=== PATIENT | male | born 1985 | race Caucasian/White ===

== ENCOUNTER 2017-08-05 18:37 | Emergency (ER) | payer SELFPAY ==
[2017-08-05 19:33] VITALS: BP 123/69; PULSE 58; TEMP 98.7; BMI 31.7
--- NOTE | 2017-08-05 20:01 | PDOC ---
History of Present Illness - General Chief Complaint: Eye Problem Stated Complaint: EYE PAIN Time Seen by Provider: 08/05/17 19:39 History Source: Patient Exam Limitations: No Limitations - History of Present Illness Initial Comments: 08/05/17 19:59 31-year-old male with complaints of left eye itchiness with discharge since yesterday now affecting his right eye. Patient denies visual changes, recent illness, injury to the eye, or radiation of pain. Timing/Duration: other Severity: mild Associated Symptoms: reports: denies symptoms Past History - Travel Traveled outside of the country in the last 30 days: No - Past Medical History Allergies/Adverse Reactions: Allergies Allergy/AdvReac Type Severity Reaction Status Date / Time No Known Allergies Allergy Verified 08/05/17 19:33 Home Medications: Ambulatory Orders NK [No Known Home Medication] 08/05/17 COPD: No - Suicide/Smoking/Psychosocial Hx Smoking Status: No Smoking History: Never smoked Have you smoked in the past 12 months: No Number of Cigarettes Smoked Daily: 0 Information on smoking cessation initiated: No Hx Alcohol Use: No Drug/Substance Use Hx: No Substance Use Type: None Patient Lives Alone: No Lives with/in: spouse/SO Review of Systems - Review of Systems Able to Perform ROS?: Yes Constitutional: No: Symptoms Reported HEENTM: Yes: Eye Pain, Blurred Vision, Tearing Integumentary: No: Symptoms Reported Neurological: No: Headache *Physical Exam - Vital Signs Last Vital Signs Temp Pulse Resp BP Pulse Ox 98.7 F 58 L 20 123/69 98 08/05/17 19:29 08/05/17 19:29 08/05/17 19:29 08/05/17 19:29 08/05/17 19:29 - Physical Exam General Appearance: Yes: Nourished, Appropriately Dressed. No: Apparent Distress HEENT: positive: EOMI, JERROD, Other (erythema to left sclera, conjuctiva, with scant amount of purulent drainge to lacrimal duct) Medical Decision Making - Medical Decision Making 08/05/17 20:02 Pt with left eye conjuctivitis. Pt will be treated with erythromycin oitment *DC/Admit/Observation/Transfer Diagnosis at time of Disposition: Conjunctivitis - Discharge Dispostion Disposition: HOME Condition at time of disposition: Good - Referrals - Patient Instructions Printed Discharge Instructions: DI for Conjunctivitis Additional Instructions: Please use oitment as prescribed until completed - Post Discharge Activity
== END 2017-08-05 20:09 | disposition home or self-care (01) ==
LOC: JERFT 18:37
DX: H10.33 Unspecified acute conjunctivitis, bilateral (principal)
CPT/HCPCS: 99281-25

== ENCOUNTER 2018-10-11 13:32 | Emergency (ER) | payer SELFPAY ==
[2018-10-11 13:56] VITALS: BP 123/68; PULSE 56; TEMP 99; BMI 30.4
--- NOTE | 2018-10-11 13:57 | PDOC ---
Rapid Medical Evaluation Time Seen by Provider: 10/11/18 13:52 Medical Evaluation: Allergies Allergy/AdvReac Type Severity Reaction Status Date / Time No Known Allergies Allergy Verified 08/05/17 19:33 10/11/18 13:52 Pt presents for evaluation of his abdomen. He states he feels a "ball" to his abdomen Exam: SNTND abdomen. Orders: Nothing Pt to proceed to ED for further evaluation Discharge Disposition - Diagnosis Abdomen soft and nontender - Referrals - Patient Instructions - Post Discharge Activity
--- NOTE | 2018-10-11 14:08 | PDOC ---
History of Present Illness - General Chief Complaint: Pain Stated Complaint: ABD PAIN Time Seen by Provider: 10/11/18 13:52 - History of Present Illness Initial Comments: 10/11/18 14:04 32-year-old male without comorbidities presents for evaluation of epigastric mass 7 days with mild discomfort. No systemic symptoms no nausea vomiting or bowel issues Past History - Past Medical History Allergies/Adverse Reactions: Allergies Allergy/AdvReac Type Severity Reaction Status Date / Time No Known Allergies Allergy Verified 10/11/18 13:56 Home Medications: Ambulatory Orders Pantoprazole Sodium [Protonix] 40 mg PO DAILY #30 tablet. 10/11/18 COPD: No - Suicide/Smoking/Psychosocial Hx Smoking Status: No Smoking History: Never smoked Have you smoked in the past 12 months: No Number of Cigarettes Smoked Daily: 0 Hx Alcohol Use: No Drug/Substance Use Hx: No Substance Use Type: None Review of Systems - Review of Systems Constitutional: No: Fever ABD/GI: No: Constipated, Diarrhea, Nausea, Vomiting, Indigestion *Physical Exam - Vital Signs Last Vital Signs Temp Pulse Resp BP Pulse Ox 99.0 F 56 L 18 123/68 98 10/11/18 13:51 10/11/18 13:51 10/11/18 13:51 10/11/18 13:51 10/11/18 13:51 - Physical Exam Comments: 10/11/18 14:04 HEAD: NC/AT EYES: Conjuntiva clear Ears: Canals and TM's normal NOSE: No d/c THROAT: Moist mucous membrances, oral pharanx clear, uvula midline NECK: Supple without adenopathy CARDIAC: S1 S2 LUNGS: CTA Full and Equal breath sounds ABDOMEN: Soft NT ND there is a fullness at the epigastric area without guarding or rebound. Mild tenderness. The remainder of the abdomen is benign. MS: Full ROM in all joints without edema NEUROLOGIC: No gross sensory or motor deficits, NVID SKIN: Normal color and temperature no lesions or rashes Medical Decision Making - Medical Decision Making 10/11/18 14:05 This appears to be an epigastric hernia we'll give abdominal corset and general surgery follow-up. I will also place the patient on a proton pump inhibitor. *DC/Admit/Observation/Transfer Diagnosis at time of Disposition: Abdomen soft and nontender, Epigastric hernia - Discharge Dispostion Disposition: HOME Condition at time of disposition: Stable Decision to Admit order: No - Referrals Referrals: Devon Cotto MD [Staff Physician] - - Patient Instructions Printed Discharge Instructions: Abdominal Hernia Additional Instructions: Por favor, use la carpeta abdominal para mayor comodidad y orquidea un seguimiento con ciruga general en 1 o 2 santacruz. Por favor tome la tableta de Protonix moe vez al da segn las indicaciones. Realice un seguimiento con el mdico gastrointestinal en 1-2 santacruz para moe evaluacin adicional y opciones de tratamiento y regrese a la huy de emergencias si los sntomas empeoran. please wear the abdominal binder for comfort and follow up with general surgery in 1-2 days. Please take the Protonix one tablet daily as directed. Follow-up with GI doctor in 1-2 days for further evaluation and treatment options and return to the emergency room should symptoms worsen. Print Language: JAPANESE - Post Discharge Activity
== END 2018-10-11 14:48 | disposition home or self-care (01) ==
LOC: JERFT 13:32
DX: K43.9 Ventral hernia without obstruction or gangrene (principal)
CPT/HCPCS: 99281-25

== ENCOUNTER 2018-11-27 08:13 | Emergency (ER) | payer OTHER ==
[2018-11-27 08:17] VITALS: BMI 29.6
[2018-11-27] MEDS ORDERED: KETOROLAC TROMETHAMINE 30 MG/1 ML VIAL IVPUSH ONE (08:54)
[2018-11-27] MEDS ORDERED: SODIUM CHLORIDE 1,000 ML IV STA (08:54)
[2018-11-27] MEDS ORDERED: PANTOPRAZOLE SODIUM 40 MG in SODIUM CHLORIDE 100 ML IVPB ONE (08:54)
[2018-11-27] MEDS ORDERED: PANTOPRAZOLE SODIUM 40 MG/100 ML BAG IVPB ONE (09:08)
[2018-11-27] MEDS ORDERED: KETOROLAC TROMETHAMINE 30 MG/1 ML VIAL ONE (09:09)
[2018-11-27 09:30] LABS: BASO % 0.6 % (0-2.0); HEMATOCRIT 43.7 % (35.4-49); HEMOGLOBIN 14.9 GM/dL (11.7-16.9); LYMPH % 34.3 % (8-40); MCHC 34.2 g/dl (32.0-35.9); MEAN CELL VOLUME 79.2 fl (80-96); MEAN PLT VOLUME 9.6 fl (7.5-11.1); MONO % 5.5 % (3.8-10.2); NEUT % 58.6 % (42.8-82.8); PLATELET COUNT 189 K/MM3 (134-434); RBC 5.52 M/mm3 (4.00-5.60); WHITE BLOOD COUNT 5.4 K/mm3 (4.0-10.0)
[2018-11-27 10:01] LABS: ALBUMIN 4.2 g/dl (3.4-5.0); BILIRUBIN,TOTAL 0.4 mg/dL (0.2-1); CALCIUM 8.9 mg/dL (8.5-10.1); TOT PROT 7.8 g/dl (6.4-8.2)
--- NOTE | 2018-11-27 10:38 | PDOC ---
History of Present Illness - General Chief Complaint: Pain Stated Complaint: ABD PAIN Time Seen by Provider: 11/27/18 08:43 History Source: Patient Exam Limitations: No Limitations - History of Present Illness Travel History: No Initial Comments: 11/27/18 10:47 33 y/o male presents to the ED with c/o epigastric pain x 1 month with 3 episodes of brown watery diarrhea in the past week. Pt states was told he had a hernia and needed to follow-up with a surgeon but states has not as of yet and decided come to the ER today. Patient denies recent travel recent illness and denies alcohol use. Patient denies seeing a worsening bump to the epigastric area since last ER visit. Timing/Duration: reports: intermittent Quality: reports: mild Abdominal Pain Onset Location: reports: epigastric Pain Radiation: reports: no radiation Activities at Onset: reports: none Aggravating Factors: improves with: None Alleviating Factors: improves with: None Past History - Travel Traveled outside of the country in the last 30 days: No Close contact w/someone who was outside of country & ill: No - Past Medical History Allergies/Adverse Reactions: Allergies Allergy/AdvReac Type Severity Reaction Status Date / Time No Known Allergies Allergy Verified 11/27/18 08:14 Home Medications: Ambulatory Orders Pantoprazole Sodium [Protonix] 40 mg PO DAILY #30 tablet. 10/11/18 COPD: No Other medical history: DENIES - Immunization History Immunization Up to Date: No - Suicide/Smoking/Psychosocial Hx Smoking Status: No Smoking History: Never smoked Have you smoked in the past 12 months: No Number of Cigarettes Smoked Daily: 0 Hx Alcohol Use: No Drug/Substance Use Hx: No Substance Use Type: None Patient Lives Alone: No Lives with/in: spouse/SO Review of Systems - Review of Systems Able to Perform ROS?: Yes Constitutional: No: Symptoms Reported HEENTM: No: Symptoms Reported Respiratory: No: Symptoms reported Cardiac (ROS): No: Symptoms Reported ABD/GI: Yes: Indigestion, Abdominal cramping. No: Nausea, Vomiting : No: Symptoms Reported Musculoskeletal: No: Symptoms Reported Integumentary: No: Symptoms Reported Endocrine: No: Symptoms Reported Hematologic/Lymphatic: No: Symptoms Reported *Physical Exam - Vital Signs Last Vital Signs Temp Pulse Resp BP Pulse Ox 98.3 F 57 L 18 125/80 100 11/27/18 08:16 11/27/18 08:16 11/27/18 08:16 11/27/18 08:16 11/27/18 08:16 - Physical Exam General Appearance: Yes: Nourished, Appropriately Dressed. No: Apparent Distress HEENT: positive: EOMI, JERROD. negative: Pale Conjunctivae Neck: positive: Supple Respiratory/Chest: positive: Lungs Clear, Normal Breath Sounds. negative: Respiratory Distress, Accessory Muscle Use Cardiovascular: positive: Regular Rhythm, Bradycardia. negative: Murmur Gastrointestinal/Abdominal: positive: Soft, Tenderness (epigastric area). negative: Distended, Hernia Extremity: positive: Normal Inspection Integumentary: positive: Normal Color, Warm, Moist Neurologic: positive: Motor Strength 5/5 (ambulatory) ED Treatment Course - LABORATORY CBC & Chemistry Diagram: 11/27/18 09:20 11/27/18 09:20 - ADDITIONAL ORDERS Additional order review: Laboratory Results 11/27/18 09:20 Sodium 141 Potassium 4.0 Chloride 107 Carbon Dioxide 29 Anion Gap 5 L BUN 14 Creatinine 1.0 Est GFR (CKD-EPI)AfAm 113.31 Est GFR (CKD-EPI)NonAf 97.76 Random Glucose 113 H Calcium 8.9 Total Bilirubin 0.4 AST 24 ALT 32 Alkaline Phosphatase 105 Total Protein 7.8 Albumin 4.2 11/27/18 09:20 RBC 5.52 MCV 79.2 L MCHC 34.2 RDW 14.0 MPV 9.6 Neutrophils % 58.6 Lymphocytes % 34.3 Monocytes % 5.5 Eosinophils % 1.0 Basophils % 0.6 - RADIOLOGY Radiology Studies Ordered: Category Date Time Status ABDOMEN & PELVIS CT W/O CONTR [CT] Stat CT Scan 11/27/18 08:53 Taken - Medications Given in the ED: ED Medications Discontinued Medications Generic Name Dose Route Start Last Admin Trade Name Freq PRN Reason Stop Dose Admin Pantoprazole Sodium 40 mg/ 100 mls @ 200 mls/hr 11/27/18 08:54 11/27/18 09:26 Sodium Chloride IVPB 11/27/18 09:23 200 mls/hr ONCE ONE Administration Sodium Chloride 1,000 mls @ 1,000 mls/hr 11/27/18 08:54 11/27/18 09:26 Normal Saline - IV 11/27/18 09:53 1,000 mls/hr ASDIR STA Administration Ketorolac Tromethamine 30 mg 11/27/18 08:54 11/27/18 09:26 Toradol Injection - IVPUSH 11/27/18 08:55 30 mg ONCE ONE Administration Medical Decision Making - Medical Decision Making 11/27/18 10:06 Chief complaint: Epigastric pain for the past month which he describes a sharp cramp-like sensation and denies radiation to his back chest or lower abdomen Exam. Mild epigastric tenderness with no right upper quadrant left upper quadrant involvement. No reproducible hernia. Plan: Labs, Protonix, Toradol IV fluids and CAT scan ordered 11/27/18 11:43 Laboratory Tests 11/27/18 11/27/18 09:20 09:20 WBC 5.4 Hgb 14.9 Hct 43.7 Neutrophils % 58.6 Sodium 141 Potassium 4.0 Chloride 107 Carbon Dioxide 29 Anion Gap 5 L Est GFR (CKD-EPI)AfAm 113.31 Random Glucose 113 H Alkaline Phosphatase [address] shows mild splenomegaly with no evidence of hiatal, ventral or inguinal hernia. No evidence of acute pathology within the abdomen and pelvis. Patient states feeling better after receiving IV protonix. Will have patient follow up with GI along with diet modification recommendations. *DC/Admit/Observation/Transfer Diagnosis at time of Disposition: Epigastric abdominal pain - Discharge Dispostion Disposition: HOME Condition at time of disposition: Improved - Referrals Referrals: Jaime Sevilla MD [Staff Physician] - - Patient Instructions Printed Discharge Instructions: DI for Epigastric Pain Additional Instructions: Avoid spicy greasy and fatty food. Please take protonix as prescribed. Please follow up with referred [employer] car [employer]. If symptoms return or worsen please go to the nearest ER. - Post Discharge Activity
[2018-11-27 12:20] VITALS: BP 118/72; PULSE 60; TEMP 98.2
== END 2018-11-27 12:22 | disposition home or self-care (01) ==
LOC: JER 08:13
PROC: 3E0333Z Introduction of Anti-inflammatory into Peripheral Vein, Percutaneous Approach (ICD-10-PCS; principal; 2018-11-27)
PROC: 3E033GC Introduction of Other Therapeutic Substance into Peripheral Vein, Percutaneous Approach (ICD-10-PCS; 2018-11-27)
PROC: 3E0337Z Introduction of Electrolytic and Water Balance Substance into Peripheral Vein, Percutaneous Approach (ICD-10-PCS; 2018-11-27)
DX: R10.13 Epigastric pain (principal)
CPT/HCPCS: 36415; 74176-TC; 80053; 83690; 85025; 99283-25; J7030

== ENCOUNTER 2021-03-12 22:30 | Emergency (ER) | payer OTHER ==
[2021-03-12 22:37] VITALS: BP 108/65; PULSE 77; BMI 30.4
[2021-03-13] MEDS ORDERED: KETOROLAC TROMETHAMINE 30 MG/1 ML VIAL IM ONE (01:39)
[2021-03-13] MEDS ORDERED: KETOROLAC TROMETHAMINE 30 MG/1 ML VIAL ONE (02:11)
== END 2021-03-13 02:57 | disposition home or self-care (01) ==
LOC: JER 22:30
PROC: 3E0233Z Introduction of Anti-inflammatory into Muscle, Percutaneous Approach (ICD-10-PCS; principal; 2021-03-13)
DX: M54.9 Dorsalgia, unspecified (principal)
CPT/HCPCS: 99283-25

== ENCOUNTER 2022-07-05 09:12 | Emergency (ER) | payer OTHER ==
[2022-07-05 09:19] VITALS: BP 134/72; PULSE 73; RESP 18; TEMP 97.7; BMI 31.3
[2022-07-05] MEDS ORDERED: FAMOTIDINE 20 MG TABLET PO ONE (10:41)
[2022-07-05] MEDS ORDERED: ACETAMINOPHEN 325 MG TABLET (FP) PO ONE (10:41)
[2022-07-05] MEDS ORDERED: MAG HYDROX/AL HYDROX/SIMETH 30 ML UNIT-DOSE CUP PO ONE (10:42)
[2022-07-05] MEDS ORDERED: ACETAMINOPHEN 325 MG TABLET (FP) ONE (10:47)
[2022-07-05] MEDS ORDERED: FAMOTIDINE 20 MG TABLET ONE (10:48)
[2022-07-05] MEDS ORDERED: MAG HYDROX/AL HYDROX/SIMETH 30 ML UNIT-DOSE CUP ONE (10:48)
[2022-07-05 12:11] LABS: BASO % 0.5 % (0-2.0); EOS % 0.3 % (0-4.5); HEMATOCRIT 44.8 % (35.4-49); HEMOGLOBIN 15.1 GM/dL (11.7-16.9); LYMPH % 29.5 % (8-40); MCH 26.6 pg (25.7-33.7); MCHC 33.6 g/dl (32.0-35.9); MEAN CELL VOLUME 79.2 fl (80-96); MEAN PLT VOLUME 9.4 fl (7.5-11.1); MONO % 4.3 % (3.8-10.2); NEUT % 65.4 % (42.8-82.8); PLATELET COUNT 191 10^3/uL (134-434); RBC 5.66 M/mm3 (4.00-5.60); RDW 14.2 % (11.9-15.9); WHITE BLOOD COUNT 5.1 K/mm3 (4.0-10.0)
[2022-07-05 12:21] LABS: INR 1.03 (0.83-1.09); PROTHROMBIN TIME (PATIENT) 11.8 SEC (9.7-13.0)
[2022-07-05 12:24] LABS: ACTIVATED PTT 28.2 SECONDS (25.2-36.5)
[2022-07-05 12:39] LABS: ALBUMIN 3.9 g/dl (3.4-5.0); CALCIUM 8.8 mg/dL (8.5-10.1)
[2022-07-05 12:40] LABS: BLOOD UREA NITROGEN 11.6 mg/dL (7-18)
[2022-07-05 12:44] LABS: BILIRUBIN,TOTAL 0.4 mg/dL (0.2-1)
== END 2022-07-05 17:25 | disposition home or self-care (01) ==
LOC: JERFT 09:12
DX: R10.12 Left upper quadrant pain (principal); R16.1 Splenomegaly, not elsewhere classified
CPT/HCPCS: 36415; 74177-TC; 80053; 83690; 84132; 85025; 85610; 85730; 86850; 86900; 86901; 99285-25; Q9967

== ENCOUNTER 2023-01-20 17:31 | Emergency (ER) | payer OTHER ==
[2023-01-20 17:56] VITALS: BP 104/69; PULSE 65; RESP 17; TEMP 98.2; BMI 56.9
[2023-01-20] MEDS ORDERED: IBUPROFEN 600 MG TABLET (FP) PO ONE ×2 (18:07→18:33)
== END 2023-01-20 18:55 | disposition home or self-care (01) ==
LOC: JERFT 17:31
DX: M79.672 Pain in left foot (principal); S90.31XA Contusion of right foot, initial encounter; W22.8XXA Striking against or struck by other objects, initial encounter
CPT/HCPCS: 73590-TC-LT-FY; 99283-25

== ENCOUNTER 2023-06-09 08:35 | Emergency (ER) | payer OTHER ==
[2023-06-09 08:43] VITALS: BP 112/72; PULSE 65; RESP 18; TEMP 98.5; BMI 29.5
== END 2023-06-09 09:36 | disposition home or self-care (01) ==
LOC: JERFT 08:35
DX: S80.12XA Contusion of left lower leg, initial encounter (principal); M79.672 Pain in left foot; X58.XXXA Exposure to other specified factors, initial encounter; Y93.9 Activity, unspecified; Y92.9 Unspecified place or not applicable
CPT/HCPCS: 73590-TC-LT-FY; 99283-25

== ENCOUNTER 2023-09-28 04:53 | Emergency (ER) | payer OTHER ==
[2023-09-28 05:03] VITALS: BMI 27.9
[2023-09-28 06:58] LABS: BASO % 0.9 % (0-2.0); HEMATOCRIT 44.9 % (35.4-49); HEMOGLOBIN 14.9 GM/dL (11.7-16.9); LYMPH % 23.2 % (8-40); MCH 26.7 pg (25.7-33.7); MCHC 33.2 g/dl (32.0-35.9); MEAN CELL VOLUME 80.6 fl (80-96); MEAN PLT VOLUME 8.5 fl (7.5-11.1); MONO % 5.2 % (3.8-10.2); NEUT % 69.7 % (42.8-82.8); PLATELET COUNT 206 10^3/uL (134-434); RBC 5.57 M/mm3 (4.00-5.60); RDW 13.5 % (11.9-15.9); WHITE BLOOD COUNT 6.1 K/mm3 (4.0-10.0)
[2023-09-28 07:05] LABS: INR 1.02 (0.83-1.09); PROTHROMBIN TIME (PATIENT) 11.8 SEC (9.7-13.0)
[2023-09-28 07:08] LABS: ACTIVATED PTT 32.4 SECONDS (25.2-36.5)
[2023-09-28 07:23] LABS: POTASSIUM 4.1 mmol/L (3.5-5.1)
[2023-09-28 07:24] LABS: BLOOD UREA NITROGEN 14.4 mg/dL (7-18); CALCIUM 8.7 mg/dL (8.5-10.1)
[2023-09-28 07:30] LABS: BILIRUBIN,TOTAL 0.4 mg/dL (0.2-1); TOT PROT 7.9 g/dl (6.4-8.2)
[2023-09-28] MEDS ORDERED: KETOROLAC TROMETHAMINE 15 MG/ML VIAL ONE (07:52)
[2023-09-28] MEDS: KETOROLAC TROMETHAMINE 15 MG/ML VIAL IVPUSH ONE (07:55)
[2023-09-28 08:40] VITALS: RESP 20
[2023-09-28 10:38] VITALS: BP 114/67; PULSE 55; TEMP 98.2
== END 2023-09-28 10:38 | disposition home or self-care (01) ==
LOC: JER 04:53
PROC: 3E0333Z Introduction of Anti-inflammatory into Peripheral Vein, Percutaneous Approach (ICD-10-PCS; principal; 2023-09-28)
DX: R07.89 Other chest pain (principal)
CPT/HCPCS: 36415; 71046-TC-FY; 80053; 84484; 85025; 85610; 85730; 93005; 93010; 99285-25